=== PATIENT | female | born 1990 | race African-American/Black ===

== ENCOUNTER 2019-03-16 12:06 | Emergency (ER) | payer OTHER ==
[~2019-03-16] VITALS: Ht 167.6 cm; Wt 95.0 kg
[2019-03-16] MEDS ORDERED: BUTALBITAL/ACETAMINOPHEN/CAFFEINE 50/325/40MG TABLET PO ONE (13:00)
[2019-03-16 14:30] VITALS: BP 128/68
== END 2019-03-16 14:30 | disposition home or self-care (01) ==
LOC: ER 12:06
DX: F41.0 Panic disorder [episodic paroxysmal anxiety] (principal); G44.209 Tension-type headache, unspecified, not intractable
CPT/HCPCS: 93005; 99283

== ENCOUNTER 2019-03-24 03:47 | Emergency (ER) | payer OTHER ==
[~2019-03-24] VITALS: Ht 167.6 cm; Wt 82.0 kg
[2019-03-24 04:54] VITALS: BP 118/60
== END 2019-03-24 05:49 | disposition left against medical advice (07) ==
LOC: ER 03:47
DX: Z53.21 Procedure and treatment not carried out due to patient leaving prior to being seen by health care provider (principal)

== ENCOUNTER 2020-11-17 07:14 | Observation (INO) | payer OTHER ==
[~2020-11-17] VITALS: Ht 167.6 cm; Wt 86.2 kg
== END 2020-11-17 09:40 | disposition home or self-care (01) ==
LOC: 8 EST LDRP 07:14
PROVIDERS: ADMIT Obstetrics & Gynecology; ATTEND Obstetrics & Gynecology
DX: O42.92 Full-term premature rupture of membranes, unspecified as to length of time between rupture and onset of labor (principal); Z3A.38 38 weeks gestation of pregnancy
CPT/HCPCS: 59025; 76805; 76817; 76818; G0378; 99281

== ENCOUNTER 2021-08-21 10:52 | Emergency (ER) | payer OTHER ==
[~2021-08-21] VITALS: Ht 165.1 cm; Wt 60.0 kg
[2021-08-21 10:53] VITALS: BP 110/91
[2021-08-21] MEDS ORDERED: LIDOCAINE HCL/PF 1% 10 MG/ML 5ML VIAL INFIL ONE (11:00)
[2021-08-21] MEDS ORDERED: ACETAMINOPHEN 325MG TABLET PO ONE (11:00)
[2021-08-21] MEDS ORDERED: BACITRACIN ZINC OINT UDPKT TOP ONE (11:00)
[2021-08-21] MEDS ORDERED: TETANUS, DIPHTHERIA, PERTUSSIS VAC/PF 0.5ML (>10YR OLD) IM ONE (11:00)
[2021-08-21] MEDS ORDERED: LIDOCAINE HCL 1% 20ML VIAL (Pyxis) INJ INFIL NR (11:15)
== END 2021-08-21 13:02 | disposition home or self-care (01) ==
LOC: ER 10:52
DX: S61.412A Laceration without foreign body of left hand, initial encounter (principal); Z91.010 Allergy to peanuts; X99.0XXA Assault by sharp glass, initial encounter; Y93.89 Activity, other specified; Y92.488 Other paved roadways as the place of occurrence of the external cause
CPT/HCPCS: 12002; 73130; 90471; 90715; 99284; J3490; Z7610